=== PATIENT | female | born 1935 | race Hispanic/Latino ===

== ENCOUNTER 2018-03-19 23:25 | Observation (INO) | payer SELFPAY ==
[2018-03-20 00:18] LABS: Hemoglobin 9.9 g/dL (12.0-16.0); Mean Corpuscular HGB CONC 33.3 g/dL (32.0-36.0); Mean Corpuscular Hemoglobin 30.7 pg (27.0-31.0); Mean Corpuscular Volume 92.4 fL (78.0-98.0); Mean Platelet Volume 7.3 fL (7.4-10.4); Platelet Count 227 thou/uL (130-400); RBC Distribution Width 12.8 % (11.5-14.5); Red Blood Cell (RBC) Count 3.23 mill/uL (4.20-5.40); White Blood Cell (WBC) Count 9.7 thou/uL (4.8-10.8)
[2018-03-20] MEDS ORDERED: Ondansetron PF 4 MG/2 ML Vial ONE (00:20)
[2018-03-20 00:24] LABS: INR-International Normal Ratio 1.1; PTT 28.7 SEC (22.9-36.1); Prothrombin Time 13.9 SEC (12.0-14.7)
[2018-03-20 00:39] LABS: Band 6 % (5-11); Hypochromia SLIGHT = 6-15 cells (100X) (0-5/hpf); Lymphocytes 12 % (21-51); MDiff Complete? YES; Neutrophil 82 % (42-75); Platelet Morphology Comment Appears Adequate
[2018-03-20 00:53] LABS: ALT (SGPT) 11 U/L (8-55); AST (SGOT) 12 U/L (5-34); Albumin 3.1 g/dL (3.4-4.8); Alkaline Phosphatase 56 U/L (40-150); Anion Gap 12 mmol/L (10-20); BUN (Urea Nitrogen) 19 mg/dL (9.8-20.1); Bilirubin, Total 0.2 mg/dL (0.2-1.2); Calc. Creatinine Clearance 0 mL/min (70-130); Calcium 8.2 mg/dL (7.8-10.44); Carbon Dioxide 24 mmol/L (23-31); Chloride 106 mmol/L (98-107); Estimated GFR-MDRD 75; Globulin 3.1 g/dL (2.4-3.5); Glucose 129 mg/dL (83-110); Potassium 3.6 mmol/L (3.5-5.1); Protein, Total 6.2 g/dL (6.0-8.3); Sodium 138 mmol/L (136-145)
--- NOTE | 2018-03-20 02:00 | PDOC.FPRHP ---
- History of Present Illness Chief Complaint: blood in stool History of Present Illness: 82yo F from [facility] presents with complaint of rectal bleeding. She states that at 11pm last night she was sitting in chair and began feeling nauseous. She then layed down on the ground to help herself to feel better and then had family help her to the bathroom. There she had a witnessed BM with bright red blood. Pt reports this is the first time this has happened. Family called EMS at this point. No Hx of recent weight loss. No vomiting. Last colonoscopy was 5 years ago and was normal. Reports she had a FOBT 3 months ago at pcp in [facility] which was normal. No fam hx of colon cancer ED Course: protonix 80mg, zofran, IVF - Allergies/Adverse Reactions Allergies Allergy/AdvReac Type Severity Reaction Status Date / Time citric acid Allergy Verified 03/20/18 10:39 - Home Medications Medication Instructions Recorded Confirmed Type Clopidogrel Bisulfate [Plavix] 75 mg PO Q2D 03/20/18 03/20/18 History Levothyroxine Sodium [Synthroid] 75 mcg PO DAILY 03/20/18 03/20/18 History - History PMHx: denies though she lists levothyroxine, clopidogrel, and venosmil as home meds. Dosages unknown. PSHx: none FHx: breast cancer Social: denies etoh/tobacco/drugs - Review of Systems General: denies: fever/chills, fatigue Eyes: denies: eye pain, vision changes ENT: denies: nasal congestion, rhinorrhea Respiratory: denies: cough, shortness of breath Cardiovascular: denies: chest pain, palpitation Gastrointestinal: reports: nausea, GI bleeding. denies: vomiting Genitourinary: denies: incontinence, dysuria Skin: denies: rashes, lesions Musculoskeletal: denies: pain, tenderness Neurological: denies: syncope, seizure Psychological: denies: anxiety, depression - Vital signs BP: [132/60] HR: [70] RR: [17] Tmax: [97.8] Pox: [97]% on [ra] Wt: [50kg] - Physical Exam Constitutional: awake, alert and oriented, well developed HEENT: normocephalic and atraumatic, EOMI, grossly normal vision, grossly normal hearing, MMM Neck: supple, trachea midline Chest: no-tender to palpation Heart: RRR, normal S1/S2 Lungs: CTAB, no respiratory distress Abdomen: soft, bowel sounds present Musculoskeletal: normal structure, normal tone Neurological: no focal deficit, normal sensation Skin: good turgor, capillary refill <2 seconds Heme/Lymphatic: no purpura, no petechia Psychiatric: normal mood and affect, good judgment and insight FMR H&P: Results - Labs Result Diagrams: 03/20/18 05:39 03/20/18 00:02 Lab results: WBC 9.7 thou/uL (4.8-10.8) 03/20/18 00:02 Hgb 9.9 g/dL (12.0-16.0) L 03/20/18 00:02 Hct 29.9 % (36.0-47.0) L 03/20/18 00:02 MCV 92.4 fL (78.0-98.0) 03/20/18 00:02 Plt Count 227 thou/uL (130-400) 03/20/18 00:02 Band Neuts % (Manual) 6 % (5-11) 03/20/18 00:02 Sodium 138 mmol/L (136-145) 03/20/18 00:02 Potassium 3.6 mmol/L (3.5-5.1) 03/20/18 00:02 Chloride 106 mmol/L (98-107) 03/20/18 00:02 Carbon Dioxide 24 mmol/L (23-31) 03/20/18 00:02 BUN 19 mg/dL (9.8-20.1) 03/20/18 00:02 Creatinine 0.74 mg/dL (0.6-1.1) 03/20/18 00:02 Glucose 129 mg/dL (83-110) H 03/20/18 00:02 Calcium 8.2 mg/dL (7.8-10.44) 03/20/18 00:02 Total Bilirubin 0.2 mg/dL (0.2-1.2) 03/20/18 00:02 AST 12 U/L (5-34) 03/20/18 00:02 ALT 11 U/L (8-55) 03/20/18 00:02 Alkaline Phosphatase 56 U/L (40-150) 03/20/18 00:02 Serum Total Protein 6.2 g/dL (6.0-8.3) 03/20/18 00:02 Albumin 3.1 g/dL (3.4-4.8) L 03/20/18 00:02 FMR H&P: A/P - Problem List (1) Normocytic anemia Current Visit: Yes Status: Acute Code(s): D64.9 - ANEMIA, UNSPECIFIED (2) Rectal bleeding Current Visit: Yes Status: Acute Code(s): K62.5 - HEMORRHAGE OF ANUS AND RECTUM (3) Hypothyroid Current Visit: Yes Status: Acute Code(s): E03.9 - HYPOTHYROIDISM, UNSPECIFIED - Plan Normocytic anemia likely 2/2 colitis A- pt presents with hx of hematochezia and has positive FOBT. CT shows evidence of enterocolitis. Pt is hemodynamically stable. Etiology possibly enterocolitis , hemorrhoids, diverticular disease, or colonic polyps. Hgb 9.9 P- admit for obs -repeat H/H in later this AM -orthostatics -plan for GI outpt probable hypothyroidism A- pt does not report hx of hypothyroidism however she lists levothyroxin as a home med. P- will hold home med for now as this will likely be a short hospital stay home plavix A- pt reports clopidogrel as home med but reports she takes it for "circulation " P- will hold med now considering GIB CODE: DNAR, DNI PPx: SCDs for VTE, protonix for GI. FMR H&P: Upper Level - Pertinent history 82 yo CF with no reported PMH presenting with feelings of nausea earlier when sitting at home watching TV. Daughter reports that she helped pt to the bathroom and pt had bloody BM and noticed miller red blood in toilet. No previous history of weight loss, abdominal pain, NVD, change in bowel caliber, family history of colon disease, melena or BRBPR. Pt had a normal colonoscopy five years ago. Pt reports no other complaints or concerns and denies CALVERT, dizziness, CP, palpitations, SOB. - Pertinent findings VSS Gen: pleasant in NAD CV: RRR Resp: unlabored, CTAB Abd: BS+, soft, NTTP - Plan Date/Time: 03/20/18 0200 I, Alec Koehler MD PGY3, have evaluated this patient and agree with findings/ plan as outlined by diversity intern resident. Pertinent changes/additions are listed here. 1. Normocytic anemia likely 2/2 colitis -Pt presents with witnessed hematochezia both at home and in ER. FOBT positive. CT abdomen shows evidence of enterocolitis. -DDx includes enterocolitis, hemorrhoids, diverticular disease, or colonic polyps. -Initial vitals and lab work stable with Hgb 9.9. -Will admit to observation and plan to repeat H/H. Obtain orthostatic vital signs and ferritin level. -If bleeding persists or pt becomes symptomatic, will consider inpatient GI consult, otherwise, pt can likely follow up with GI outpatient. code: DNAR PPx: SCDs for VTE, protonix for GI. disposition: Admit to medical observation for anticipated length of stay less than two midnights, pending clinical course. Addendum - Attending - Attending Attestation Date/Time: 03/20/18 6630 I personally evaluated the patient and discussed the management with Dr. Deleon I agree with the History, Examination, Assessment and Plan documented above with any addition or exceptions noted below. 82 yo female visiting x 1 month from [facility] at Daughters home here locally. History obtained from patient and Daughter Patient with PMHX hypothyroidism and on RX for circulation clopidogrel and venosmil. Patient relates on routine lab draw by in [facility] approximately 5 months ago noted HGB 9.2 and was administered IV iron. Last colonoscopy 5 years ago self reported as "normal and 3 months ago FOBT negative". Patient with history dark stool but felt related to iron supplementation. Early this am had spell of nausea and layed on ground at home had episode of incontinence of stool(hematochezia) and urine. Patient at ER with documented hematochezia, abd CT preliminary with enterocolitis. Patient VSS alert responsive hemodynamically stable trending H/H consult with GI consider diverticular bleed angiodysplasia, PPI empirically started abdominal exam soft nontender at present. Consider CEA level and further evaluation per GI rec.
[2018-03-20] MEDS ORDERED: Pantoprazole 40 MG VIAL ONE (02:20)
[2018-03-20] MEDS ORDERED: Acetaminophen 325 MG TAB PO PRN (04:03)
[2018-03-20 07:10] LABS: #Lymphocytes 0.8 thou/uL (1.20-3.40); #Monocytes 0.3 thou/uL (0.11-0.59); #Neutrophils 7.2 thou/uL (1.40-6.50); %Eosinophils 0.4 % (0.0-10.0); %Lymphocytes 9.6 % (21.0-51.0); %Monocytes 3.8 % (0.0-10.0); %Neutrophils 86.2 % (42.0-75.0); Hemoglobin 8.5 g/dL (12.0-16.0); Mean Corpuscular HGB CONC 32.4 g/dL (32.0-36.0); Mean Corpuscular Hemoglobin 29.8 pg (27.0-31.0); Mean Corpuscular Volume 91.9 fL (78.0-98.0); Mean Platelet Volume 7.7 fL (7.4-10.4); Platelet Count 213 thou/uL (130-400); RBC Distribution Width 12.8 % (11.5-14.5); Red Blood Cell (RBC) Count 2.85 mill/uL (4.20-5.40); White Blood Cell (WBC) Count 8.4 thou/uL (4.8-10.8)
--- NOTE | 2018-03-20 08:10 | CT ---
PRELIMINARY REPORT/[facility]/EMERGENTY AFTER-HOURS PROCEDURE CT Abdomen and Pelvis With Contrast EXAM DATE/TIME: 03/20/2018 1:05 AM CLINICAL HISTORY: 82 years old, female; Signs and symptoms; Other: Hematochezia; Patient HX: Er 5 82 yo f presents to e d with C/O rectal bleed. PT reports she began feeling nauseated while watching tv earlier this evenin g. Pt's daughter then helped her to the restroom where she noticed "some" blood in pt's bm. PT denies HX of similar issues. PT denies any nausea at this time. PT denies experiencing any syncope . TECHNIQUE: Axial computed tomography images of the abdomen and pelvis with intravenous contrast. Coronal reforma tted images were created and reviewed. COMPARISON: No relevant prior studies available. FINDINGS: Lower thorax: Small hiatal hernia. ABDOMEN: Liver: Normal attenuation. No mass. Gallbladder and bile ducts: Normal. No calcified stones. No ductal dilation. Pancreas: Normal. No ductal dilation. Spleen: No splenomegaly. No masses Adrenals: Normal. No mass. Kidneys and ureters: Normal. No hydronephrosis. Stomach and bowel: Mild distal sigmoid colon and rectal wall thickening. Mild diffuse small bowel wal l thickening. Moderate wall thickening of these mid ascending colon. Appendix: No evidence of appendicitis. PELVIS: Bladder: Unremarkable as visualized. Reproductive: Unremarkable as visualized. ABDOMEN and PELVIS: Intraperitoneal space: No free air. No significant fluid collection. Bones/joints: Osteopenia. L1 compression deformity. Soft tissues: Unremarkable. Vasculature: Normal. No abdominal aortic aneurysm. Lymph nodes: No enlarged lymph nodes. Other findings: Moderate levoscoliosis. IMPRESSION: Findings suggestive of diffuse enterocolitis. There are additional nonemergent findings discussed in the body of the report. Thank you for allowing us to participate in the care of your patient. Dictated and Authenticated by: Brandon Mtz MD 03/20/2018 1:23 AM Central Time ([place] & [place]) FINAL REPORT CT ABDOMEN AND PELVIS WITH IV CONTRAST: DATE: 03/20/2018. TIME: Performed on an emergency basis at 0107 hours. HISTORY: Abdominal pain. Rectal bleeding. FINDINGS: Agree with the preliminary report by Dr. Mtz from [facility]. No focal mass or bowel obstru ction are apparent. There is circumferential wall thickening of the colon and rectum suggestive of l eric segment coloproctitis. Cause is not evident. Prominent atherosclerosis. POS: [facility]
[2018-03-20 09:32] VITALS: TEMP 98.1; BMI 18.8
[2018-03-20] MEDS ORDERED: Iopamidol 370 76% 100 ML VIAL ONE (11:16)
[2018-03-20 14:40] LABS: #Eosinphils 0.1 thou/uL (0.0-0.7); #Lymphocytes 1.2 thou/uL (1.20-3.40); #Monocytes 0.2 thou/uL (0.11-0.59); %Eosinophils 0.9 % (0.0-10.0); %Lymphocytes 15.9 % (21.0-51.0); %Monocytes 3.1 % (0.0-10.0); %Neutrophils 80.1 % (42.0-75.0); Hemoglobin 8.7 g/dL (12.0-16.0); Mean Corpuscular HGB CONC 33.1 g/dL (32.0-36.0); Mean Corpuscular Hemoglobin 30.4 pg (27.0-31.0); Mean Platelet Volume 7.5 fL (7.4-10.4); Platelet Count 221 thou/uL (130-400); RBC Distribution Width 13.1 % (11.5-14.5); Red Blood Cell (RBC) Count 2.87 mill/uL (4.20-5.40); White Blood Cell (WBC) Count 7.5 thou/uL (4.8-10.8)
[2018-03-20 15:52] VITALS: BP 153/70
[2018-03-20] MEDS ORDERED: GoLYTELY 4,000 ml Bottle PO SCH (17:00)
[2018-03-20] MEDS ORDERED: Lactated Ringer's 1,000 ML IV SCH (23:59)
--- NOTE | 2018-03-21 07:33 | CON ---
DATE OF CONSULTATION: 03/20/2018 REASON FOR CONSULTATION: Abdominal pain, hematochezia, abnormal CAT scan of abdomen. HISTORY OF PRESENT ILLNESS: Torri Bosch is a very pleasant 82-year-old female who was hospitalized overnight because of abdominal pain, 1 episode of hematochezia and diarrhea, nausea, vomiting. The patient is from [facility]. She is here with her daughter, who lives in [facility]. Apparently, she has been here for the last 1 month. Last night, she ate some food and then afterwards started getting sick and started having some cramping pain across the lower abdomen. She felt faint and she actually fell to the floor and subsequently, she had incontinence of urine and stool. The family tells me she has had some blood in the stool. The patient also had some nausea and vomiting. She had no history of fever or chills. No similar episodes in the past. The patient's symptoms resolved completely. She is tolerating clear liquid diet. No abdominal pain. No nausea, vomiting and no more bleeding. She had abdominal CAT scan done in the ER. Interestingly, the CAT scan shows thickening of small bowel and also large intestine and the report was that she has most likely enterocolitis. Surprisingly, she has no symptoms and her physical findings does not support with CAT scan findings. She has no abdominal pain, no nausea, vomiting anymore. The patient tells me that a colonoscopy several years ago in [facility] , was negative. A year ago, she was found to have anemia. No further workup was done and her family doctor gave her some intermittent iron infusion and placed her on iron supplement. She had a negative fecal occult blood test last year. Her bowel movements are usually regular. No history of hematochezia or melena. No history of nose bleed, hematuria, or bleeding from the gums. No dyspepsia, indigestion, or any other symptoms. The patient tells me she is very healthy and she has no medical problems. However, going over the medication list and physical, she had been on levothyroxine and also taking clopidogrel and I am not really sure why. She has lot of lung symptoms. ALLERGIES: CITRIC ACID. SOCIAL HISTORY: The patient does not smoke or drink alcohol. MEDICAL ILLNESS: Hypothyroidism. She is on clopidogrel for unknown reason. No history of TIA. No heart disease. PAST SURGICAL HISTORY: None. FAMILY HISTORY: Confusing data as admitting history and physical, there is evidence of chronic history of breast cancer. The patient tells me that she had kidney cancer in the family. MEDICATIONS: Reviewed. REVIEW OF SYSTEMS: A 10-point system is totally unremarkable. PHYSICAL EXAMINATION: GENERAL: She is a fragile-looking, very pleasant, elderly female, appears very comfortable. She is awake, alert, and communicated. VITAL SIGNS: She is afebrile. Pulse is 72, blood pressure 152/70. HEENT: Conjunctivae clear. NECK: Supple. No adenitis or thyromegaly noted. CARDIOVASCULAR SYSTEM: First and second heart sounds heard. LUNGS: Clear to auscultation. ABDOMEN: Soft. Abdomen is nondistended. Abdomen is nontender. No organomegaly or masses. EXTREMITIES: No edema. LABORATORY DATA: CBC on admission; WBC 9700, hemoglobin 9.9, hematocrit 29.9, today dropped into 8.5 and subsequently 8.7, hematocrit 26.4, MCV 92, platelet count is 221,000, polymorphs 80, lymphocytes 15, monocytes 3. Chemistry panel is normal except glucose of 129. Albumin is 3.1, globulin 3.1. TSH is high at 11.953. Her serum iron is 39. Liver function tests are normal. Abdominal CAT scan shows diffuse colitis and also thickening of small intestine. The patient's physical finding does not correlate with abnormal CAT scan findings. IMPRESSION: 1. An 82-year-old female with abdominal pain, nausea, vomiting, and diarrhea with some bleeding. She appears to have most likely some infectious diarrhea.. Her symptoms are resolved_. 2. Anemia, normocytic with negative colonoscopy in the past. She had GI symptoms of bleeding, diarrhea one time yesterday. 3. Hypothyroidism. My initial plan was for her to pursue a colonoscopy and possibly esophagogastroduodenoscopy tomorrow. Unfortunately, she has been on clopidogrel and she took the medicine yesterday. We will not be able to perform the next procedure for next 4 to 5 days because the patient being on Plavix until yesterday. RECOMMENDATIONS: As follows; 1. Follow hemoglobin and hematocrit. 2. Advance diet as tolerated. 3. We will start the patient studies in the near future. She will be off the Plavix for at least 4 to 5 days. Job ID: [id number] [facility]
--- NOTE | 2018-03-21 13:28 | DIS ---
DATE OF ADMISSION: 03/20/2018 DATE OF DISCHARGE: 03/20/2018 RESIDENT: Shira Suarez MD ADMITTING ATTENDING: Elmer Grider MD DISCHARGE ATTENDING: Kennedy Willis MD CONSULT: Gastroenterology. PROCEDURES: None. PRIMARY DIAGNOSIS: Normocytic anemia, likely secondary to colitis. SECONDARY DIAGNOSES: 1. Hypothyroidism. 2. Rectal bleeding. DISCHARGE MEDICATIONS: 1. Synthroid 75 mcg oral daily. 2. Plavix 75 mg oral every 2 days. Discontinued medications: The patient instructed to discontinue Plavix for 4 to 5 days prior to colonoscopy that will be scheduled in the outpatient setting. HISTORY OF PRESENT ILLNESS/HOSPITAL COURSE: This is an 82-year-old female from [facility], who presents with a chief complaint of rectal bleeding. The patient states that she had an episode of rectal bleeding. The patient felt lightheaded and nauseous at that time. The patient states that the bowel movement had bright red blood. The patient reports that this is the first time that this has happened. The patient denied any recent weight loss or vomiting. The patient had a colonoscopy within the last 5 years that was normal. She also states that she had a FOBT 3 months ago, which was normal. The patient was unclear as to why she had a FOBT performed. No family history of colon cancer. In the ED, the patient was given Protonix, Zofran, and IV fluid. The patient reports taking Synthroid, but denies hypothyroidism. The patient also on Plavix for a circulation problem. On presentation, the patient's vital signs were within normal limits. The patient was found to have a hemoglobin of 9.9 initially and this value dropped to 8.5. Another 6 hours later, the patient's hemoglobin zoraida to 8.7. The patient had an abdominal pelvis CT that showed circumferential wall thickening of the colon and rectum suggestive of long segment coloproctitis. Gastroenterology was consulted. Gastroenterology recommended that the patient to be off Plavix for at least 4 to 5 days prior to EGD/colonoscopy. The patient had taken her Plavix 2 days before and therefore, an EGD and colonoscopy was not performed during this hospitalization. The patient was given Dr. Willson's information to follow up with him as outpatient. The patient was also given [facility]'s number and given information to apply for the colonoscopy program. The patient is consented. The patient remained asymptomatic throughout her stay and her hemoglobin had stabilized by the end of her stay. The patient agreed to have close outpatient followup. DISPOSITION: Stable. DISCHARGE INSTRUCTIONS: 1. Location: Home. 2. Diet: Regular. 3. Activity: Ad ga. 4. Followup: Follow up with PCP within [address] Willson within 7 days. Job ID: [id number]
--- NOTE | 2018-03-25 11:42 | EKG ---
Test Reason : Blood Pressure : / mmHG Vent. Rate : 066 BPM Atrial Rate : 066 BPM P-R Int : 140 ms QRS Dur : 076 ms QT Int : 412 ms P-R-T Axes : 062 -13 041 degrees QTc Int : 431 ms Normal sinus rhythm Low voltage QRS Confirmed by DOMINIC VILLANUEVA ([id number]), editor greeting card QUINCY KENNY ([id number]) on 03/25/2018 11:42:29 AM Referred By: Confirmed By:DOMINIC VILLANUEVA
== END 2018-03-20 19:10 | disposition home or self-care (01) ==
LOC: ERS 23:25 → ERHOLD 03-20 03:13 → 2SW 03-20 08:15
PROVIDERS: ADMIT Emergency Medicine; ATTEND Emergency Medicine
DX: D64.9 Anemia, unspecified (principal); E03.9 Hypothyroidism, unspecified; K62.5 Hemorrhage of anus and rectum; K63.89 Other specified diseases of intestine; K44.9 Diaphragmatic hernia without obstruction or gangrene; Z91.048 Other nonmedicinal substance allergy status; Z79.02 Long term (current) use of antithrombotics/antiplatelets; Z79.899 Other long term (current) drug therapy
CPT/HCPCS: 36415; 74177; 80053; 82274; 82728; 83540; 84443; 84484; 85025; 85610; 85730; 86850; 86900; 86901; 93005; 96361; 96374; 96375; C9113; G0378; J2405